=== PATIENT | male | born 1935 | race Caucasian/White ===

== ENCOUNTER 2017-01-08 05:17 | Emergency (ER) | payer MEDICARE, BC ==
[2017-01-08] MEDS ORDERED: Ondansetron 4 MG/2 ML SDV IVPUSH ONE (06:10)
[2017-01-08] MEDS ORDERED: Sodium Chloride 0.9% 1,000 ML IV SCH (06:15)
[2017-01-08] MEDS ORDERED: HYDROmorphone 0.5 MG/0.5 ML Syringe IVPUSH ONE (06:17)
--- NOTE | 2017-01-08 06:57 | EDM.PDOC ---
<Navi Morrison - Last Filed: 01/08/17 06:51> ED HPI GENERAL MEDICAL PROBLEM - General Chief Complaint: Abdominal Pain Stated Complaint: MEDICAL VIA NOTHERN Time Seen by Provider: 01/08/17 06:06 Source of Information: Reports: Patient, Family History Limitations: Reports: Other (dementia) - History of Present Illness INITIAL COMMENTS - FREE TEXT/NARRATIVE: History of present illness: [81-year-old male presenting with his by ambulance with an acute on set of epigastric pain. Started about 4:00 this morning and was associated with nausea no vomiting and diaphoresis. He's never had anything like this before. He's had no chest or abdominal surgeries. He is on MiraLAX on a daily basis and so has not had any trouble with constipation diarrhea no dysuria. This was sudden in an unusual as seizures rarely complains of anything and has never been in the hospital. Patient has dementia limiting our ability to obtain a meaningful history from him. Initially was complaining of chest pain but on examination his pain is in the epigastrium.] Review of systems: As per history of present illness and below otherwise all systems reviewed and negative. Past medical history: As per history of present illness and as reviewed below otherwise noncontributory. Surgical history: As per history of present illness and as reviewed below otherwise noncontributory. Social history: No reported history of drug or alcohol abuse. Family history: As per history of present illness and as reviewed below otherwise noncontributory. Physical exam: HEENT: Atraumatic, normocephalic, mucous membranes dry, throat clear, neck supple, nontender, trachea midline. Lungs: Clear to auscultation, breath sounds equal bilaterally, chest nontender. Heart: S1S2, regular, negative for clicks, rubs, or JVD. Abdomen: On palpation is pain seems to be clearly in the epigastrium and perhaps right upper quadrant area bowel sounds are hypoactive he may be slightly distended Pelvis: Stable nontender. Genitourinary: Deferred. Rectal: Deferred. Extremities: Atraumatic, negative for cords or calf pain. Neurovascular unremarkable. He has some small ulcerations in his left lower extremities which is says is self-inflected. 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 Abdominal pelvic CT is pending at time of dictation] Therapeutics: [Patient is receiving IV fluids has received IV Zofran and IV Dilaudid 0.5] Impression: [] Plan: [] Definitive disposition and diagnosis as appropriate pending reevaluation and review of above. - Related Data Allergies Allergy/AdvReac Type Severity Reaction Status Date / Time cephalexin monohydrate Allergy Other Verified 01/08/17 05:31 [From Keflex] hydrochlorothiazide Allergy Rash Verified 01/08/17 05:31 Home Meds: Home Meds Allopurinol [Allopurinol] 1 tab PO BID 01/25/15 [History] Aspirin [Children's Aspirin] 81 mg PO BEDTIME 01/25/15 [History] Cholecalciferol (Vitamin D3) [Vitamin D3] 1,000 units PO BID 01/25/15 [History] Donepezil HCl 5 mg PO DAILY 01/25/15 [History] Gabapentin [Gabapentin] 1 tab PO TID 01/25/15 [History] Melatonin/Pyridoxine HCl (B6) [Melatonin 10 mg Tablet] 1 tab PO BEDTIME [History] Memantine HCl [Namenda] 10 mg PO BEDTIME 01/25/15 [History] Metoprolol Tartrate [Lopressor] 50 mg PO BID 01/25/15 [History] Niacin 500 mg PO BID 01/25/15 [History] Omeprazole [Prilosec] 20 mg PO DAILY 01/25/15 [History] Oxybutynin Chloride [Ditropan Xl] 1 tab PO DAILY 01/25/15 [History] Tamsulosin HCl 0.4 mg PO DAILY 01/25/15 [History] Polyethylene Glycol 3350 [MiraLAX] 17 gm PO DAILY 08/09/15 [History] Multivitamin [Multi-Vitamin Daily] 1 tab PO DAILY 01/08/17 [History] Nystatin [Nystatin Crm] 1 applic TOP BID PRN 01/08/17 [History] Past Medical History HEENT History: Reports: Other (See Below) Other HEENT History: Tot[place] blind Cardiovascular History: Reports: High Cholesterol, Hypertension Respiratory History: Reports: None Gastrointestinal History: Reports: Chronic Constipation Genitourinary History: Reports: Prostate Disorder Musculoskeletal History: Reports: Arthritis Neurological History: Reports: Alzheimers Disease, CVA Other Neuro History: dementia Psychiatric History: Reports: Anxiety, Dementia Other Psychiatric History: dementia Endocrine/Metabolic History: Reports: None Hematologic History: Reports: None Immunologic History: Reports: None Oncologic (Cancer) History: Reports: None Dermatologic History: Reports: None - Infectious Disease History Infectious Disease History: Reports: Chicken Pox, Measles, Mumps, Rubella, Shingles - Past Surgical History Head Surgeries/Procedures: Reports: None HEENT Surgical History: Reports: None Cardiovascular Surgical History: Reports: None Respiratory Surgical History: Reports: None Endocrine Surgical History: Reports: None Neurological Surgical History: Reports: None Musculoskeletal Surgical History: Reports: None Oncologic Surgical History: Reports: None Dermatological Surgical History: Reports: None Social & Family History - Tobacco Use Smoking Status *Q: Never Smoker Second Hand Smoke Exposure: No - Caffeine Use Caffeine Use: Reports: None, Coffee - Recreational Drug Use Recreational Drug Use: No Course - Vital Signs Last Recorded V/S: Last Vital Signs Temp 36.6 C 01/08/17 10:43 Pulse 57 L 01/08/17 10:43 Resp 16 01/08/17 10:43 BP 125/70 01/08/17 10:43 Pulse Ox 93 L 01/08/17 10:43 - Orders/Labs/Meds Labs: Laboratory Tests 01/08/17 01/08/17 01/08/17 Range/Units 06:11 06:11 06:11 WBC 9.1 (4.5-11.0) K/uL RBC 4.81 (4.30-5.90) M/uL Hgb 15.8 H (12.0-15.0) g/dL Hct 45.8 (40.0-54.0) % MCV 95 (80-98) fL MCH 33 H (27-31) pg MCHC 35 (32-36) % Plt Count 181 (150-400) K/uL Neut % (Auto) 58 (36-66) % Lymph % (Auto) 30 (24-44) % Ogle % (Auto) 8 H (2-6) % Eos % (Auto) 5 H (2-4) % Baso % (Auto) 0 (0-1) % D-Dimer, Quantitative (0.0-400.0) ng/mL Sodium 141 (140-148) mmol/L Potassium 4.3 (3.6-5.2) mmol/L Chloride 107 (100-108) mmol/L Carbon Dioxide 28 (21-32) mmol/L Anion Gap 6.3 (5.0-14.0) mmol/L BUN 25 H (7-18) mg/dL Creatinine 1.3 (0.8-1.3) mg/dL Est Cr Clr Drug Dosing 38.77 mL/min Estimated GFR (MDRD) 53 L (>60) Glucose 101 (74-106) mg/dL Lactic Acid (0.4-2.0) mmol/L Calcium 9.0 (8.5-10.1) mg/dL Total Bilirubin 0.5 (0.2-1.0) mg/dL AST 37 (15-37) U/L ALT 47 (12-78) U/L Alkaline Phosphatase 79 (46-116) U/L Troponin I (0.000-0.056) ng/mL C-Reactive Protein 0.06 (0.0-0.3) mg/dL Total Protein 7.2 (6.4-8.2) g/dL Albumin 3.2 L (3.4-5.0) g/dL Globulin 4.0 H (2.3-3.5) g/dL Albumin/Globulin Ratio 0.8 L (1.2-2.2) Amylase 47 (25-115) U/L Lipase 145 (73-393) U/L 01/08/17 01/08/17 01/08/17 Range/Units 06:11 06:17 06:18 WBC (4.5-11.0) K/uL RBC (4.30-5.90) M/uL Hgb (12.0-15.0) g/dL Hct (40.0-54.0) % MCV (80-98) fL MCH (27-31) pg MCHC (32-36) % Plt Count (150-400) K/uL Neut % (Auto) (36-66) % Lymph % (Auto) (24-44) % Ogle % (Auto) (2-6) % Eos % (Auto) (2-4) % Baso % (Auto) (0-1) % D-Dimer, Quantitative 500 H (0.0-400.0) ng/mL Sodium (140-148) mmol/L Potassium (3.6-5.2) mmol/L Chloride (100-108) mmol/L Carbon Dioxide (21-32) mmol/L Anion Gap (5.0-14.0) mmol/L BUN (7-18) mg/dL Creatinine (0.8-1.3) mg/dL Est Cr Clr Drug Dosing mL/min Estimated GFR (MDRD) (>60) Glucose (74-106) mg/dL Lactic Acid 1.8 (0.4-2.0) mmol/L Calcium (8.5-10.1) mg/dL Total Bilirubin (0.2-1.0) mg/dL AST (15-37) U/L ALT (12-78) U/L Alkaline Phosphatase (46-116) U/L Troponin I < 0.017 (0.000-0.056) ng/mL C-Reactive Protein (0.0-0.3) mg/dL Total Protein (6.4-8.2) g/dL Albumin (3.4-5.0) g/dL Globulin (2.3-3.5) g/dL Albumin/Globulin Ratio (1.2-2.2) Amylase (25-115) U/L Lipase (73-393) U/L Meds: Medications Discontinued Medications Generic Name Dose Route Start Last Admin Trade Name Freq PRN Reason Stop Dose Admin Hydromorphone HCl 0.5 mg 01/08/17 06:17 01/08/17 06:24 Dilaudid IVPUSH 01/08/17 06:18 0.5 mg ONETIME ONE Administration Sodium Chloride 1,000 mls @ 250 mls/hr 01/08/17 06:15 01/08/17 06:17 Normal Saline IV 250 mls/hr ASDIRECTED LAUREN Administration Ondansetron HCl 4 mg 01/08/17 06:10 01/08/17 06:17 Zofran IVPUSH 01/08/17 06:11 4 mg ONETIME ONE Administration Departure - Departure Disposition: Home, Self-Care 01 Clinical Impression: Cholecystitis without calculus, Dementia - Discharge Information Instructions: Dementia, Cholecystitis, [id number] Referrals: John Rodriguez MD [Primary Care Provider] - Forms: ED Department Discharge Care Plan Goals: follow up appt with Dr Rodriguez and Dr Alonso [place] 5/325 if pt is having severe pain--will cause constipation. Rtc if having severe pain. <Dominique Barker - Last Filed: 01/10/17 00:14> ED ROS GENERAL - Review of Systems Review Of Systems: See Below ED EXAM, GENERAL - Physical Exam Exam: See Below Course - Re-Assessments/Exams Free Text/Narrative Re-Assessment/Exam: 01/08/17 10:00 pt had a cat scan of the abdoman pelvis which showed a distended gb with probable stones. He had an Us which showed stones impscted in the gb neck. He remains tender to palpate over the gb area. Dr Alonso saw him in consult. Pt should see Dr Rodriguez for further workup, A followup appt will be se up with Dr Alonso Departure - Departure Time of Disposition: 10:05
[2017-01-08 10:44] VITALS: BP 125/70
--- NOTE | 2017-01-08 11:37 | CR ---
Low lung volumes. Heart size within normal limits. Streaky density left lung base likely relates to a telectasis.
--- NOTE | 2017-01-08 13:33 | US ---
Ultrasound abdomen Limited. Findings: Ultrasound abdomen. Findings: The liver is not well visualized. Gallbladder wall demonstrate no thickening. There is a st one within the neck of the gallbladder with sludge. Common bile duct 5 mm. Pancreas is not well-visua lized. IVC is not well-visualized. Right kidney 9.5 cm. No hydronephrosis. Impression: 1. Limited examination. There is cholelithiasis.
--- NOTE | 2017-01-08 14:34 | CONS ---
DATE OF SERVICE: 01/08/2017 REFERRING PHYSICIAN: CONSULTING PHYSICIAN: Joshua Alonso MD Consultation from Dr. Barker. REASON FOR CONSULTATION: Evaluation of abdominal pain. HISTORY OF PRESENT ILLNESS: This is an 81-year-old male who has developed acute onset of right upper quadrant abdominal pain. This is a new problem. This is hard to quantify and qualify due to the patient's significant dementia, and the majority of his history and physical is obtained from a combination of the chart and the . This is a new problem for him. Unable to assess if this is associated with eating greasy or fatty foods. PAST MEDICAL HISTORY: 1. Significant dementia. 2. Shingles. 3. The patient is blind. 4. Possible stroke. 5. Hypertension. PAST SURGICAL HISTORY: None. SOCIAL HISTORY: He is not a smoker. REVIEW OF SYSTEMS: GENERAL: The patient has not changed his current condition. HEENT: The patient did have some vision changes, which is possibly a stroke, but this was hard to again quantify and qualify. CARDIOVASCULAR: No history of myocardial infarction. RESPIRATORY: No shortness of breath. GASTROINTESTINAL: No acholic stools. NEUROLOGICAL: Significant dementia. The remainder of systems is reviewed and is negative. PHYSICAL EXAMINATION: VITAL SIGNS: Stable except the patient is saturating 90% on room air. HEENT: Pupils are equal. NECK: Supple. LUNGS: Clear. ABDOMEN: Pain with palpation over the gallbladder. No rebound. No guarding. EXTREMITIES: Full range of motion. Strength is limited. NEUROLOGICAL: He is not oriented. PSYCH: Unable to assess for depression at this time. IMAGING DATA: CT scan, I did review which suggest the possibility of cholecystitis. PLAN: This is very obviously a challenge to determine the patient's etiology of his pain. Most likely, it is his gallbladder, but this is a challenge to assess based upon his again aforementioned dementia. Therefore, we will delay any surgical intervention at this time as the patient is saturating at 90% on room air and probably will require a more extensive pulmonary and cardiovascular evaluation. We will send the patient home with ibuprofen. We will also give a prescription for [place], but recommended not filling it unless absolutely necessary due to worsening dementia. We will have the patient see Dr. Rodriguez and evaluated for current medical status. Joshua Alonso MD /[id number]
== END 2017-01-08 10:48 | disposition home or self-care (01) ==
LOC: JP.ED 05:17
DX: K81.9 Cholecystitis, unspecified (principal); F03.90 Unspecified dementia, unspecified severity, without behavioral disturbance, psychotic disturbance, mood disturbance, and anxiety; E78.00 Pure hypercholesterolemia, unspecified; I10 Essential (primary) hypertension; Z88.8 Allergy status to other drugs, medicaments and biological substances; Z88.1 Allergy status to other antibiotic agents; Z79.899 Other long term (current) drug therapy
CPT/HCPCS: 36415; 71010; 74176; 76705; 80053; 82150; 83605; 83690; 84484; 85025; 85379; 86140; 93005; 96361; 96374; 96375; 99285; J1170; J2405; J7040; 93010; 99284